=== PATIENT | male | born 1965 | race Caucasian/White ===

== ENCOUNTER → 2018-07-19 | Outpatient (REF) ==
[~2018-07-19] MED LIST: AFRIN 12 HOUR0.05 % NAS; AMOXICILLIN/CL875 MG PO; AUGMENTIN875 MG PO; AUGMENTIN875TAB PO; AZITHROMYCIN500 MG OR; BENAZEPRIL20 M1 PO; BENAZEPRIL20 MG PO; GLIPIZIDE5 M2 PO; KEFLEX250 MG; LORTAB5 PO; LOTENSIN; LOTENSIN10 MG OR; METFORMIN1000 MG PO; METFORMIN500 M1; METFORMIN500 M1 OR; NAPROSYN500 MG OR; NO HOME MEDS; PERCOCET 5/325M1 TAB PO; PRAVASTATIN SOD10 MG PO; XYZAL5 MG PO; [UNRECOGNIZED DRUG - OTHER]
== END | disposition home or self-care (01) | DRG 951 ==
LOC: LAB 09:08
DX: Z02.83 Encounter for blood-alcohol and blood-drug test (principal)

== ENCOUNTER 2020-12-25 12:04 | Inpatient (IN) | payer OTHER ==
[~2020-12-25] VITALS: Ht 180.3 cm; Wt 103.0 kg
--- NOTE | 2020-12-25 12:50 | NUR ---
PT TO ROOM VIA WC
--- NOTE | 2020-12-25 14:26 | NUR ---
PATIENT OFFERED BOTTLE OF WATER PER REQUEST
[2020-12-25 17:05] LABS: HEMATOCRIT 45.4 % (39.0-50.0); HEMOGLOBIN 15.3 g/dl (14.0-18.0); IMMATURE GRANULOCYTES 0.9 % (0.0-5.0); MEAN CELL VOLUME 83.6 fL CALC (80.0-100.0); MEAN CORPUSCULAR HGB 28.2 pG CALC (26.0-32.0); MEAN CORPUSCULAR HGB CONC 33.7 g/dL CAL (32.0-36.0); NEUT# 6.08 thou/uL (1.82-7.42); RED BLOOD COUNT 5.43 mill/uL (4.70-6.10); RED CELL DISTRI WIDTH 12.9 % (11.5-15.5)
[2020-12-25 17:11] LABS: ALBUMIN 3.9 g/dL (3.2-5.0); ALKALINE PHOSPHATASE 66 u/l (38-126); BUN 17 mg/dL (9-20); BUN/CREATININE RATIO 27 (12-20 (CALC)); CARBON DIOXIDE 23 mmol/l (22-30); CREATININE 0.6 mg/dL (0.7-1.3); GFR > 60 ML/MIN (>=60 (CALC)); GFR FOR AFR.AMER. > 60 ML/MIN (>=60 (CALC)); LIPASE 165 u/l (23-300); MAGNESIUM 1.9 mg/dL (1.6-2.3); TOTAL PROTEIN 6.9 g/dL (6.3-8.2)
[2020-12-25 17:12] LABS: ANION GAP 20 (6-22 (CALC)); CHLORIDE 89 mmol/l (95-108); POTASSIUM 3.7 mmol/l (3.5-5.1); SGOT/AST 74 u/l (17-59); SODIUM 128 mmol/l (137-146)
[2020-12-25 19:28] LABS: URINE BLOOD DIPSTICK NEGATIVE (NEGATIVE); URINE COLOR YELLOW; URINE GLUCOSE - DIPSTICK >=1000 mg/dL (NEGATIVE); URINE KETONE 15 mg/dL (NEGATIVE); URINE LEUK ESTERASE NEGATIVE (NEGATIVE); URINE PROTEIN - DIPSTICK >=300 mg/dL (NEG-TRACE); URINE SPECIFIC GRAVITY >=1.030
[2020-12-25 19:32] LABS: URINE BILIRUBIN - DIPSTICK NEGATIVE (NEGATIVE); URINE NITRITE - DIPSTICK NEGATIVE (Negative)
[2020-12-25 19:37] LABS: URINE RBC 0-2 RBC/hpf (0-5); URINE WBC 0-2 WBC/hpf (0-5)
[2020-12-25 19:38] VITALS: BP 164/89
--- NOTE | 2020-12-25 19:42 | NUR ---
REPORT TO DELLA CHAO
[2020-12-25 20:14] VITALS: BP 151/83
[2020-12-25 21:38] VITALS: BP 134/69
[2020-12-25 22:38] VITALS: BP 153/87
[2020-12-25 23:00] VITALS: BP 159/86
--- NOTE | 2020-12-25 23:14 | NUR ---
REPORT GIVEN TO JESÚS CHAO. PATIENT AGREES WITH PLAN FOR ADMISSION. O2 VIA N/C AT 6L O2 SAT 92%. NO DISTRESS. AWAKE AND ALERT. PATIENT BEING TRANSPORTED VIA WHEELCHAIR BY JEREMIE TORRE TELEBOX 2385 IN USE.
[2020-12-25 23:18] VITALS: BP 164/88
--- NOTE | 2020-12-25 23:53 | NUR ---
RECEIVED RFEPORT FROM NURSE HULL, PATIENT TRANSPORTED VIA WHEELCAIR, CONNECTED TO O2 @ 6LPM VIA NC. AMBULATORY ALERT ORIENTED X 3, ORIENTED TO ROOM AND CALL LIGHT SYSTEM, DENIES PAIN AT THIS TIME, ADMISSION ASSESSMENT DONE, IV OPN LAC G 18 PATENT FLUSES WELL, BREATHING SHALLOW, EXERTIONAL DYSPNEA NOTED, HOOKED ON TELEMETRY, CALL LIGHT AT REACH.
[2020-12-26] VITALS (13 sets, daily range): BP systolic 127–152; BP diastolic 74–87
--- NOTE | 2020-12-26 00:22 | NUR ---
SPOKE TO RESPIRATORY, THAT PATIENT ON 6LPM, RESPIRATORY IN ROOM AT THIS TIME, PUT ON HIGH FLOW AND HUMIDIFIED O2, BREATHING SHALLOW, COMFORTABLE RESTING AT THIS TIME, CALL LIGHT AT REACH.
--- NOTE | 2020-12-26 05:10 | NUR ---
PATIENT COMFORTABLE RESTING IN BED, BREATHING SHALLOW, REMAINS ON O2 @ 7LPM VIA HIGH FLOW NC, CALL LIGHT AT REACH.
[2020-12-26 05:38] LABS: IMMATURE GRANULOCYTES 0.7 % (0.0-5.0); MEAN CELL VOLUME 82.4 fL CALC (80.0-100.0); MEAN CORPUSCULAR HGB CONC 33.9 g/dL CAL (32.0-36.0); NEUT# 5.66 thou/uL (1.82-7.42); RED BLOOD COUNT 4.72 mill/uL (4.70-6.10); RED CELL DISTRI WIDTH 12.7 % (11.5-15.5)
[2020-12-26 05:41] LABS: HEMATOCRIT 38.9 % (39.0-50.0); HEMOGLOBIN 13.2 g/dl (14.0-18.0)
[2020-12-26 06:00] LABS: ALKALINE PHOSPHATASE 62 u/l (38-126); ANION GAP 15 (6-22 (CALC)); BILIRUBIN, TOTAL 0.7 mg/dL (0.0-1.4); BUN 14 mg/dL (9-20); BUN/CREATININE RATIO 30 (12-20 (CALC)); CARBON DIOXIDE 24 mmol/l (22-30); CHLORIDE 94 mmol/l (95-108); CREATININE 0.5 mg/dL (0.7-1.3); GFR > 60 ML/MIN (>=60 (CALC)); GFR FOR AFR.AMER. > 60 ML/MIN (>=60 (CALC)); POTASSIUM 3.8 mmol/l (3.5-5.1); SGOT/AST 32 u/l (17-59); SODIUM 129 mmol/l (137-146)
[2020-12-26 06:14] LABS: C-REACTIVE PROTEIN 18.5 mg/dL (0-0.9); TOTAL PROTEIN 5.4 g/dL (6.3-8.2)
--- NOTE | 2020-12-26 08:53 | NUR ---
ASSESSMENT DONE. PATIENT IS ALERT AND ORIENT X3. PATIENT DENIES PAIN. TELE IN PLACE. PATIENT HAS A DRY COUGH. O2 AT 7L AT HIGH FLOW AND PATIENT IS READING 86%-88%. KARLA BRANDON NOTIFIED OF PATIENT O2. INCREASE O2 AT 10L HIGH FLOW. PATIENT O2 UP TO 91%. PATIENT STATED WHEN HE COUGHS HE FEELS SOB AND O2 GOES DOWN 89%-90%. LUNGS SOUND DIMINISHED. CALL LIGHT IN REACH. ORDERS RECEIVED FOR PATIENT TO BE TRANSFER. NOTIFIED PATIENT OF POC. PATIENT VERBALIZED UNDERSTANDING.
--- NOTE | 2020-12-26 09:20 | NUR ---
REPORT CALLED TO JEREMIE ROSE.
--- NOTE | 2020-12-26 09:30 | NUR ---
DR. PENA AND KARLA BRANDON AT BEDSIDE TO ASSESS PATIENT.
--- NOTE | 2020-12-26 09:40 | NUR ---
TRANSFER PATIENT TO ICU VIA BED TO ROOM [address]
--- NOTE | 2020-12-26 11:05 | NUR ---
PT RECEIVED TO ICU 2 FROM MED/SURG VIA STRETCHER. PT ALERT AND ORIENTED X 3. LUNGS ARE CLEAR BUT DIMINISHED, NOW ON 10 LPM, SATS 88-92%.
[2020-12-26] MEDS ORDERED: BRILINTA90 MG PO (11:47)
[2020-12-26] MEDS ORDERED: ATORVASTATIN CA80 MG PO (11:47)
[2020-12-26] MEDS ORDERED: ADULT ASPIRIN R81 MG PO (11:48)
[2020-12-26] MEDS ORDERED: FENOFIBRATE145 MG PO (11:48)
[2020-12-26] MEDS ORDERED: LOPRESSOR25 MG PO (11:48)
[2020-12-26] MEDS ORDERED: NORVASC5 M1 PO (11:48)
[2020-12-26] MEDS ORDERED: CINNAMON500 M1 PO (11:49)
[2020-12-26] MEDS ORDERED: OMEGA-31000 MG PO (11:49)
[2020-12-26] MEDS ORDERED: CALCIUM 600 + D1 TAB PO (11:50)
[2020-12-26] MEDS ORDERED: ACETAMINOPHEN500 M1 PO (11:50)
[2020-12-26] MEDS ORDERED: FLAX SEED1000 MG PO (11:51)
--- NOTE | 2020-12-26 11:51 | NUR ---
COMPLETED MED REC FROM MEDS PROVIDED. PT IS COVID PT, UNABLE TO ENTER ROOM. MEDS STORED IN PHARMACY
--- NOTE | 2020-12-26 13:42 | NUR ---
PT RESTS IN THE BED, CONTINUES AT 10 LPM NC WITHOUT DISTRESS. PT ABLE TO SPEAK ON PHONE DESIRED, FAMILY UPDATED.
--- NOTE | 2020-12-26 15:54 | NUR ---
PT AWARE OF PENDING TRANSFER TO [facility]. CASE MGMT AWARE, PROCESS BEGUN.
--- NOTE | 2020-12-26 19:20 | NUR ---
transfer center called this unit. instructed pt was to have pulmonary zyglo inspector & requested our physicians phone number. dustins number given.
--- NOTE | 2020-12-26 19:45 | NUR ---
awake. using cell phone. denies resp diff. o2 cont. panel monitor shows sinus rhythm hr 90. #18 lac. po fluids taken well. voids per urinal. fall precautions cont. spoke to pt @ length about prone position. pt declined @ present. said "i usually sleep on my side."
--- NOTE | 2020-12-26 20:00 | NUR ---
payam called this technical document writer & said he had a call out to dr delgado. will wait further instructions.
--- NOTE | 2020-12-26 20:10 | NUR ---
rt notified of need for abgs.
--- NOTE | 2020-12-26 20:20 | NUR ---
rt here. abgs drawn.
--- NOTE | 2020-12-26 20:49 | NUR ---
O2 FLOW INCREASED TO 12L VIA HFNC.
--- NOTE | 2020-12-26 22:00 | NUR ---
watching tv & using cell phone. no distress. o2 cont.
[2020-12-27] VITALS (8 sets, daily range): BP systolic 121–157; BP diastolic 61–87
--- NOTE | 2020-12-27 00:01 | NUR ---
eyes closed. no distress. library monitor shows sinus rhythm ivcd hr 84.
--- NOTE | 2020-12-27 02:00 | NUR ---
resting quietly. resps even & unlabored. no apparent distress.
--- NOTE | 2020-12-27 04:00 | NUR ---
eyes closed. no distress. o2 cont.
--- NOTE | 2020-12-27 05:00 | NUR ---
xray here. pcxr obtained. lab here. blood drawn.
--- NOTE | 2020-12-27 05:48 | NUR ---
audrey from transfer center in [place] called this display card writer. update given. she said dr rajan wasn't comfortable sending him thru the night & would start up again with transfer today.
[2020-12-27 05:51] LABS: HEMATOCRIT 39.3 % (39.0-50.0); HEMOGLOBIN 13.3 g/dl (14.0-18.0); IMMATURE GRANULOCYTES 1.2 % (0.0-5.0); MEAN CELL VOLUME 83.8 fL CALC (80.0-100.0); MEAN CORPUSCULAR HGB 28.4 pG CALC (26.0-32.0); MEAN CORPUSCULAR HGB CONC 33.8 g/dL CAL (32.0-36.0); NEUT# 6.58 thou/uL (1.82-7.42); RED BLOOD COUNT 4.69 mill/uL (4.70-6.10); RED CELL DISTRI WIDTH 12.6 % (11.5-15.5)
[2020-12-27 06:16] LABS: ALBUMIN 2.9 g/dL (3.2-5.0); ALKALINE PHOSPHATASE 64 u/l (38-126); ANION GAP 12 (6-22 (CALC)); BILIRUBIN, TOTAL 0.6 mg/dL (0.0-1.4); BUN 18 mg/dL (9-20); BUN/CREATININE RATIO 35 (12-20 (CALC)); C-REACTIVE PROTEIN 8.2 mg/dL (0-0.9); CARBON DIOXIDE 27 mmol/l (22-30); CHLORIDE 99 mmol/l (95-108); CREATININE 0.5 mg/dL (0.7-1.3); GFR > 60 ML/MIN (>=60 (CALC)); GFR FOR AFR.AMER. > 60 ML/MIN (>=60 (CALC)); POTASSIUM 3.7 mmol/l (3.5-5.1); SGOT/AST 31 u/l (17-59); SODIUM 134 mmol/l (137-146); TOTAL PROTEIN 5.3 g/dL (6.3-8.2)
--- NOTE | 2020-12-27 07:20 | NUR ---
pt awake in bed; offers no complaints; no apparent acute distress noted; assessment completed at this time; pt alert and oriented; denies pain/ discomfort; no n/v noted; resp even and unlabored; exertional sob noted, with activity or while speaking; lungs clear/ diminished bases; skin color wnl; o2 per nc at 12L hi yadira; ccnp loose cough noted; hr reg; strong pulses; no edema noted; sr on monitor; abd soft with bs present; no bm noted per conventional mortgage underwriter at this time; pt voiding clear selena urine without complication; urinal at bedside; #18 patent to inner lac; saline locked per assistant shift supervisor; no redness or edema noted at site; proning explained; pt encouraged to use call light; plan of care/ am meds explained; will continue to monitor
--- NOTE | 2020-12-27 08:04 | NUR ---
pt awake in bed eating breakfast; no apparent distress noted; o2 per nc; sr on monitor; call light within reach; will continue to monitor
--- NOTE | 2020-12-27 08:10 | NUR ---
received call from [facility] Phyllis Goodman calling to confirm Dr Song will be taking care of pt today; confirmed; pulm med surg rn to call Dr Song;
--- NOTE | 2020-12-27 08:18 | NUR ---
spouse called this hand sign writer; unable to provided passcode; pt's address and verified per caller; update provided
--- NOTE | 2020-12-27 09:06 | NUR ---
Dr Song present at bedside to assess pt and discuss plan of care
--- NOTE | 2020-12-27 10:15 | NUR ---
pt awake in bed; offers no complaints; motor grader operator reconnected; pt disconnects self to ambulate to bathroom; reports bm; sr on monitor; o2 per nc; call light within reach; will continue to monitor
--- NOTE | 2020-12-27 10:50 | NUR ---
call received from [facility] Maxine; bed assignment received; pt transferring to room 109; report to be called to [phone]
--- NOTE | 2020-12-27 12:04 | NUR ---
pt awake in bed; offers no complaints; no apparent distress noted; iv intact and saline locked; no redness or edema noted at site; sr on monitor; o2 per nc at 12L; plan of care/ ETA of transport explained; all 3 medication bags noted in room with pt; will continue to monitor
--- NOTE | 2020-12-27 12:05 | NUR ---
call placed to spouse Andree Hua; updated on pending transfer to room 109
--- NOTE | 2020-12-27 12:20 | NUR ---
report called to [facility]
--- NOTE | 2020-12-27 12:36 | NUR ---
report given to [facility]; pt discharged with EMS in stable condition; o2 per nc; pt to transfer to [facility];
== END 2020-12-27 12:37 | DRG 177 ==
LOC: ED 12:04 → ED-I 19:05 → MS2 20:24 → ED 20:24 → MS2 22:39 → ICU 12-26 07:36
PROVIDERS: Emergency Medicine; ADMIT Hospitalist; ATTEND Hospitalist
PROC: XW033E5 Introduction of Remdesivir Anti-infective into Peripheral Vein, Percutaneous Approach, New Technology Group 5 (ICD-10-PCS; principal; 2020-12-26)
DX: U07.1 COVID-19 (principal); J12.82 Pneumonia due to coronavirus disease 2019; J96.01 Acute respiratory failure with hypoxia; E87.1 Hypo-osmolality and hyponatremia; I10 Essential (primary) hypertension; E11.9 Type 2 diabetes mellitus without complications; I25.2 Old myocardial infarction; Z95.5 Presence of coronary angioplasty implant and graft; Z79.02 Long term (current) use of antithrombotics/antiplatelets; Z79.82 Long term (current) use of aspirin
CPT/HCPCS: J1650